=== PATIENT | female | born 1975 | race Caucasian/White ===

== ENCOUNTER → 2017-03-17 | Outpatient (CLI) | payer OTHER ==
[~2017-03-17] MED LIST: ACYC400T PO; CITA20TA7 PO; CYCL10TA9; ESOM20SU; GABA-486 PO; LEVO50TA6 PO; LISI-552 PO; METF1000 PO; PENI500T PO; PRM25T PO; SULF1TAB38 PO; TRAM-21
--- NOTE | 2017-03-17 09:41 | Diagnostic Imaging Report ---
Two views of the right knee. INDICATION: Chronic knee pain. FINDINGS: No fracture, dislocation or radiopaque foreign body. No significant joint space loss is seen. There is a minimal tricompartment osteophyte formation seen. No suprapatellar effusion. IMPRESSION: Mild osteoarthritis. Dictated by: Dictated on workstation # [id number]
== END ==
LOC: RAD 09:20
PROVIDERS: ATTEND Surgery
DX: M25.561 Pain in right knee (principal)
CPT/HCPCS: 73560